=== PATIENT | male | born 1970 | race Asian ===

== ENCOUNTER 2019-11-18 17:46 | Emergency (ER) | payer MEDICAID, SELFPAY ==
[2019-11-18] VITALS (11 sets, daily range): BP systolic 141–177; BP diastolic 75–90; PULSE 91–95; RESP 31–45; TEMP 35.3–36.2; O2SAT 97–100
--- NOTE | 2019-11-18 17:50 | DI.RAD.S_ITS ---
PROCEDURE: XR CHEST 1V INDICATIONS: suspected sepsis TECHNIQUE: One view of the chest was acquired. COMPARISON: None. FINDINGS: Surgical changes and devices: None. Lungs and pleura: Minimal streaky left basilar opacities. Lung volumes are diminished. No pleural effusions or pneumothorax. Mediastinum: Mediastinal contours appear normal. Heart size is normal. Bones and chest wall: No suspicious bony lesions. Overlying soft tissues appear unremarkable. IMPRESSION: Slightly diminished lung volumes with streaky left basilar opacities. Findings favored to represent atelectasis. Developing airspace disease/aspiration not excluded if clinically appropriate. Dictated by: Scooby Jiménez M.D. on 11/18/2019 at 18:48 Approved by: Scooby Jiménez M.D. on 11/18/2019 at 18:49
--- NOTE | 2019-11-18 17:57 | DI.CT.S_ITS ---
PROCEDURE: CT HEAD/BRAIN W CON INDICATIONS: altered TECHNIQUE: 4.5 mm thick angled axial sections acquired from the foramen magnum to the vertex after the administration of intravenous contrast, with coronal and sagittal reformats. For radiation dose reduction, the following was used: automated exposure control, adjustment of mA and/or kV according to patient size. COMPARISON: [facility], CT, CT SOFT TISSUE NECK W CON, 11/18/2019, 18:05. FINDINGS: Image quality: Limited by patient motion artifact. CSF Spaces: Basal cisterns are patent. No extra-axial fluid collections. Ventricles are normal in size and shape. Brain: No midline shift. No intracranial masses. No abnormal intracranial enhancement. Martines-white interface appears normal. Skull and face: Calvarium and visualized facial bones appear intact, without suspicious lesions. There is moderate inflammatory changes/swelling of the posterior subcutaneous soft tissues of the bilateral occipital and left posterior parietal region with overlying skin thickening. There is suggestion of mild edema of the underlying musculature of the skull. No organized fluid collection. Sinuses: Mastoid air cells are clear. Moderate opacification the left maxillary sinus. IMPRESSION: 1. Extensive subcutaneous soft tissue edema/inflammation noted over the posterior bilateral occipital and posterior left parietal regions with associated skin thickening. No organized fluid collection or abscess. Findings likely related to superficial infection/cellulitis versus early phlegmon formation. Suggestion of mild inflammatory changes of the underlying musculature. No underlying osseous erosions. 2. Left maxillary sinus disease. 3. No abnormal intracranial enhancement or suspicious hypodense foci in the brain parenchyma. No intracranial abscess or mass seen. Preliminary findings were already discussed with Dr. Stinson by Dr. Rinaldi. Dictated by: Scooby Jiménez M.D. on 11/18/2019 at 18:49 Approved by: Scooby Jiménez M.D. on 11/18/2019 at 19:07
--- NOTE | 2019-11-18 17:59 | DI.CT.S_ITS ---
PROCEDURE: CT SOFT TISSUE NECK W CON INDICATIONS: abscess to head TECHNIQUE: After the administration of intravenous contrast, 3.0 mm axial sections acquired from the sella to the aortic arch. Additional oblique axial 3.0 mm sections acquired through the pharynx. 3 mm thick coronal and sagittal reformats were generated. For radiation dose reduction, the following was used: automated exposure control. COMPARISON: [facility], CT, CT HEAD/BRAIN W CON, 11/18/2019, 18:05. FINDINGS: Image quality: Degraded by motion artifact. Lymph nodes: No pathologically enlarged lymph nodes seen throughout the neck. Vessels: Visualized vasculature appears patent. Neck spaces: The oropharynx, nasopharynx, and pharynx demonstrate no mucosal lesions. The vocal cords, false vocal cords, pyriform sinuses, epiglottis, vallecula, and tongue base all appear normal. Extramucosal spaces appear unremarkable. Visualized airways are widely patent. Glands: The parotid and submandibular glands appear normal. Thyroid gland is unremarkable as visualized. Miscellaneous: Visualized brain and orbits appear normal. Lung apices appear clear. Extensive superficial subcutaneous soft tissue inflammation/edema identified from the posterior occipital region bilaterally, left posterior parietal region, and extending along the posterior neck to the level of C6-7. There is associated skin thickening. No skin thickening and subcutaneous edema involves the left side of the face and submandibular region. No organized fluid collection identified. There is swelling and heterogeneity involving the muscles which are of the left neck muscles predominantly involving the semispinalis capitis and minimally the trapezius. No organized fluid collection/abscess identified. No evidence for subcutaneous gas. There is minimal anterior prevertebral soft tissue stranding from C2-C4 possibly related to secondary inflammatory changes in the posterior neck. This is relatively homogeneous in attenuation. No organized fluid collection. No osseous erosions. Bones: No suspicious bony lesions. No acute fracture. Multilevel cervical spondylosis. Straightening of cervical lordosis which may be due to patient positioning and/or concurrent muscle spasms. There is moderate opacification of the left maxillary sinus. Remainder of the paranasal sinuses appear clear. Mastoid air cells are well-aerated. IMPRESSION: 1. Extensive subcutaneous soft tissue edema/inflammation involving the posterior neck with associated inflammatory changes/edema of the underlying neck vasculature, predominantly involving the left semispinalis capitis and trapezius muscles. There is associated skin thickening. Findings are likely related to cellulitis although early phlegmon formation of the deeper soft tissues not excluded. No evidence for abscess formation. 2. Minimal, homogeneous stranding of the anterior prevertebral soft tissues from C2-C4 possibly secondary inflammatory changes from the posterior neck. There is no airway compromise associated with this finding. No organized fluid collections in the prevertebral space. 3. Left maxillary sinus disease. 4. Mild skin thickening and subcutaneous inflammatory changes of the left face, also likely related to cellulitis. Findings were already previously discussed with Dr. Stinson of the emergency department by Dr. Rinaldi. Dictated by: Scooby Jiménez M.D. on 11/18/2019 at 19:15 Approved by: Scooby Jiménez M.D. on 11/18/2019 at 19:26
[2019-11-18] MEDS: methylPREDNISolone 125 MG/2 ML VIAL IV ×2 (18:01→18:35)
[2019-11-18] MEDS: PIPERACILLIN-TAZO 4.5 GM/100 ML FROZ.PIGGY IV ×2 (18:01→18:26)
[2019-11-18] MEDS: SODIUM CHLORIDE 0.9% 1,000 ML 1000 ML IV ×2 (18:02→18:26)
[2019-11-18 18:19] LABS: Red Cell Distribution Width 13.4 % (11.6-14.8)
[2019-11-18 18:21] LABS: Prothrombin Time 11.7 SECONDS (10.1-12.7)
[2019-11-18 18:23] LABS: PTT Partial Thromboplastin Tim 32 SECONDS (26.4-36.2)
[2019-11-18 18:24] LABS: Lactate (Lactic Acid) 1.7 mmol/L (0.7-2.1)
[2019-11-18 18:25] LABS: Alanine Aminotransferase 12 IU/L (<50); Albumin 3.9 g/dL (3.5-5.0); Alkaline Phosphatase 181 U/L (38-126); Aspartate Aminotransferase 25 IU/L (17-59); BUN Creatinine Ratio 23.7 (6-22); Bilirubin Total 0.4 mg/dL (0.2-1.3); Blood Urea Nitrogen 45 mg/dL (9-20); Calcium 9.5 mg/dL (8.4-10.2); Chloride 96 mmol/L (98-107); Estimated Glomerular Filt Rate 38.2 mL/min (>60); HEMOLYSIS < 15 (0-50); Potassium 4.4 mmol/L (3.4-5.1); Sodium 128 mmol/L (137-145); Total Protein 7.9 g/dL (6.3-8.2)
[2019-11-18 18:26] LABS: Ketones (Beta-Hydroxybutyrate) 9.52 mmol/L (<0.27)
[2019-11-18 18:27] LABS: Hematocrit 44.2 % (41-53); Hemoglobin 14.3 g/dL (13.5-17.5); Mean Corpuscular HGB Conc 32.3 % (30-36); Mean Corpuscular Hemoglobin 30.2 PG (26-34); Mean Corpuscular Volume 93.5 fL (80-100); Platelet Count 356 X10^3/uL (150-400); Red Blood Cell Count 4.73 X10^6/uL (4.5-5.9)
[2019-11-18 18:30] LABS: Carbon Dioxide < 5 mmol/L (22-32); Glucose 591 mg/dL (70-100)
[2019-11-18 18:31] LABS: Add Manual Diff / Slide Review YES; White Blood Cell Count 37.1 X10^3/uL (4.5-11.0)
[2019-11-18 18:32] LABS: Lipase 2924 U/L (23-300)
--- NOTE | 2019-11-18 18:42 | ED_ITS ---
HPI - Neuro Symptoms/Deficit General Chief Complaint: Neuro Symptoms/Deficit Stated Complaint: Altered Mental Status Time Seen by Provider: 11/18/19 18:13 Source: patient and family Mode of arrival: EMS Limitations: no limitations History of Present Illness HPI Narrative: This is a 49-year-old male who comes to the emergency department with complaint of infection on the back of his neck. Family states it has been there for several days. Patient has not had any fevers. They state today he seemed a little bit confused today but was totally normal yesterday. He has a history of dyslipidemia but they deny any diabetes or other medical history. Patient denies pain. But he does have some naked swelling of the neck and posterior scalp. He has not had any chest pain issues with vomiting or diarrhea. He has not any issues with urination. Patient has prior surgeries. No known allergies. No tobacco, occasional alcohol with no illicit. Related Data Allergies Allergy/AdvReac Type Severity Reaction Status Date / Time No Known Drug Allergies Allergy Verified 11/18/19 18:06 Review of Systems Review of Systems ROS Unobtainable: All systems reviewed & are unremarkable except as noted in HPI and below Patient History Medical History (Updated 11/18/19 @ 22:27 by Venus Stinson DO) Dyslipidemia (Acute) alcohol intake frequency: a few times a month Substance Use Type: does not use Exam Narrative Exam Narrative: GEN: well nourished, male, alert, patient appears to be in moderate distress. Patient answers majority of questions properly he is mildly somnelent but easily arouses. HEENT: Atraumatic patient has extensive swelling the posterior left neck, pupils are equal round reactive to light, extraocular movements are intact, nares are clear, TMs are clear with no fluid. Throat is clear without any exudates, erythema, tonsillar enlargement or uvular deviation, patient has significant swelling of the posterior neck and scalp, patient has appears to be an abscess that is partially open, no active drainage noted. HEART: Regular rate and rhythm without murmur, clicks, rubs. Pulses are equal in upper and lower extremities LUNGS:Lungs clear to auscultation, no wheezes, rales, crackles, chest moves symmetrically ABD:bowel sounds normal, soft, non-tender, no guarding, rebound, rigidity, no masses noted, no hepatosplenomegaly :No CVA tenderness MSCL: Non-tender, no muscle atrophy, muscles strength 5/5 upper and lower extremities, full range of motion, normal gait NEURO:CN 2-12 intact, sensation normal, reflexes 2/4 upper and lower extre mities. finger nose finger test normal, heel cm test normal, romberg normal Initial Vital Signs Initial Vital Signs: Vital Signs Temperature 95.6 F L 11/18/19 18:00 Course Orders Ordered: ED Orders 11/18/19 22:19 Basic Metabolic Panel Stat Discontinued Medications Sodium Chloride (Normal Saline 0.9%) 1,000 mls @ 1,000 mls/hr IV BOLUS ONE Stop: 11/18/19 18:49 Last Infusion: 11/18/19 19:00 Dose: 0 mls/hr Documented by: Admin: 11/18/19 18:02 Dose: 1,000 mls/hr Documented by: RAVINDRA Vancomycin HCl 1,250 mg/ (Sodium Chloride) 250 mls @ 250 mls/hr IV NOW ONE Stop: 11/18/19 17:58 Last Infusion: 11/18/19 20:17 Dose: 0 mls/hr Documented by: Admin: 11/18/19 19:05 Dose: 250 mls/hr Documented by: DEYSI Piperacillin/Tazobactam/Dextrose (Zosyn) 4.5 gm in 100 mls @ 200 mls/hr IV NOW ONE Stop: 11/18/19 18:27 Sodium Chloride (Normal Saline 0.9%) 1,000 mls @ 1,000 mls/hr IV BOLUS ONE Stop: 11/18/19 19:01 Last Infusion: 11/18/19 19:29 Dose: 0 mls/hr Documented by: Admin: 11/18/19 18:26 Dose: 1,000 mls/hr Documented by: DEYSI Piperacillin/Tazobactam/Dextrose (Zosyn) 4.5 gm in 100 mls @ 200 mls/hr IV NOW ONE Stop: 11/18/19 18:48 Last Infusion: 11/18/19 19:00 Dose: 0 mls/hr Documented by: Admin: 11/18/19 18:26 Dose: 200 mls/hr Documented by: DEYSI INSULIN DRIP PREMIX (Myxredlin Drip Premix) 100 unit in 100 mls @ 6 mls/hr IV TITRATE JAH; Protocol Last Titration: 11/18/19 22:13 Dose: 0 mls/hr Documented by: DEYSI Cosigned by: KBRSILVIA Admin: 11/18/19 19:09 Dose: 6 mls/hr Documented by: DEYSI Cosigned by: ESTEE Sodium Bicarbonate 100 meq/ (Dextrose) 1,100 mls @ 150 mls/hr IV CONT JAH Last Admin: 11/18/19 21:20 Dose: Not Given Documented by: DEYSI Potassium Chloride 20 meq/ (Sodium Chloride) 260 mls @ 130 mls/hr IV NOW ONE Stop: 11/18/19 21:59 Last Infusion: 11/18/19 22:17 Dose: 0 mls/hr Documented by: DEYSI Cosigned by: KBRSILVIA Admin: 11/18/19 20:28 Dose: 130 mls/hr Documented by: DEYSI Cosigned by: HGUBERN Lactated Ringer's (Lactated Ringers) 1,000 mls @ 250 mls/hr IV CONT JAH Last Infusion: 11/18/19 22:16 Dose: 0 mls/hr Documented by: Admin: 11/18/19 21:04 Dose: 250 mls/hr Documented by: DEYSI Potassium Chloride 20 meq/ (Sodium Chloride) 260 mls @ 130 mls/hr IV NOW ONE Stop: 11/18/19 23:45 Last Infusion: 11/18/19 22:19 Dose: 130 mls/hr Documented by: DEYSI Cosigned by: KBRSILVIA Admin: 11/18/19 22:11 Dose: 130 mls/hr Documented by: DEYSI Cosigned by: ESTEE Potassium Chloride 40 meq/ (Sodium Chloride) 520 mls @ 130 mls/hr IV NOW ONE Stop: 11/19/19 01:57 Last Admin: 11/18/19 22:20 Dose: Not Given Documented by: DEYSI Insulin Human Regular (Humulin R) 8 unit IV NOW ONE Stop: 11/18/19 18:56 Last Admin: 11/18/19 19:06 Dose: 8 unit Documented by: DEYSI Cosigned by: ESTEE Lidocaine HCl (Urojet) 5 ml TOP NOW ONE Stop: 11/18/19 21:56 Last Admin: 11/18/19 22:10 Dose: 5 ml Documented by: DEYSI Methylprednisolone (Solu-Medrol 125 Mg Vial) 125 mg IV NOW ONE Stop: 11/18/19 17:59 Methylprednisolone (Solu-Medrol 125 Mg Vial) 125 mg IV NOW ONE Stop: 11/18/19 18:33 Last Admin: 11/18/19 18:35 Dose: 125 mg Documented by: JORDEN Morphine Sulfate (Morphine) 4 mg IV NOW ONE Stop: 11/18/19 18:01 Last Admin: 11/18/19 20:31 Dose: Not Given Documented by: DEYSI Vital Signs Vital signs: Vital Signs - 8 hr 11/18/19 18:00 11/18/19 18:06 11/18/19 18:36 Temperature 95.6 F L 95.6 F L 97.1 F L Pulse Rate 93 H 92 H Respiratory Rate 35 H 40 H Blood Pressure 169/88 H Blood Pressure [Right Arm] 160/80 H Pulse Oximetry 100 97 11/18/19 18:57 11/18/19 19:21 11/18/19 19:34 Temperature Pulse Rate 91 H 91 H 92 H Respiratory Rate 45 H 36 H 36 H Blood Pressure Blood Pressure [Right Arm] 141/80 H 148/85 H 151/75 H Pulse Oximetry 100 99 99 11/18/19 19:51 11/18/19 20:15 11/18/19 20:32 Temperature Pulse Rate 92 H 92 H 91 H Respiratory Rate 39 H 33 H 31 H Blood Pressure Blood Pressure [Right Arm] 151/82 H 153/87 H 157/90 H Pulse Oximetry 99 99 100 11/18/19 21:08 11/18/19 21:25 Temperature Pulse Rate 94 H 95 H Respiratory Rate 37 H 35 H Blood Pressure Blood Pressure [Right Arm] 177/90 H 147/80 H Pulse Oximetry 97 98 MDM - Neuro Symptoms/Deficit Lab Data Attestation: I reviewed the patient's lab results. Result diagrams: 11/18/19 17:55 11/18/19 22:19 Labs: Lab Results 11/18/19 11/18/19 11/18/19 Range/Units 17:55 17:55 17:55 WBC 37.1 H* (4.5-11.0) X10^3/uL RBC 4.73 (4.5-5.9) X10^6/uL Hgb 14.3 (13.5-17.5) g/dL Hct 44.2 (41-53) % MCV 93.5 (80-100) fL MCH 30.2 (26-34) PG MCHC 32.3 (30-36) % RDW 13.4 (11.6-14.8) % Plt Count 356 (150-400) X10^3/uL Neut % (Auto) Not Reportable Lymph % (Auto) Not Reportable [place] % (Auto) Not Reportable Eos % (Auto) Not Reportable Baso % (Auto) Not Reportable Lymph # (Auto) Not Reportable [place] # (Auto) Not Reportable Baso # (Auto) Not Reportable Total Counted 100 Seg Neutrophils % 81.0 H (38-70) % Band Neutrophils % 11.0 H (3-7) % Lymphocytes % (Manual) 4.0 L (25-45) % Monocytes % (Manual) 4.0 (2-11) % Neutrophils # (Manual) 78443 H (1627-1228) /uL RBC Morphology Normal morphology ESR (0-15) MM/HR PT 11.7 (10.1-12.7) SECONDS INR 1.0 (0.9-1.3) APTT 32 (26.4-36.2) SECONDS ABG pH (7.35-7.45) ABG pCO2 (35-45) mmHg ABG pO2 (80-100) mmHg ABG HCO3 (22-26) mmol/L ABG Total CO2 (21-31) mmol/L ABG O2 Saturation (95-100) % ABG Base Excess (-2-2) mmol/L FiO2 Sodium (137-145) mmol/L Potassium (3.4-5.1) mmol/L Chloride (98-107) mmol/L Carbon Dioxide (22-32) mmol/L BUN (9-20) mg/dL Creatinine (0.66-1.25) mg/dL Estimated GFR (>60) mL/min BUN/Creatinine Ratio (6-22) Glucose (70-100) mg/dL Lactate (0.7-2.1) mmol/L Calcium (8.4-10.2) mg/dL Phosphorus (2.5-4.5) mg/dL Magnesium (1.6-2.3) mg/dL Total Bilirubin (0.2-1.3) mg/dL AST (17-59) IU/L ALT (<50) IU/L Alkaline Phosphatase (38-126) U/L C-Reactive Protein (<1.0) mg/dL Total Protein (6.3-8.2) g/dL Albumin (3.5-5.0) g/dL Globulin (1.7-4.1) g/dL Albumin/Globulin Ratio (1.0-2.8) Lipase (23-300) U/L Procalcitonin 2.70 H (<0.5) ng/mL Ketones (<0.27) mmol/L 11/18/19 11/18/19 11/18/19 Range/Units 17:55 17:55 17:55 WBC (4.5-11.0) X10^3/uL RBC (4.5-5.9) X10^6/uL Hgb (13.5-17.5) g/dL Hct (41-53) % MCV (80-100) fL MCH (26-34) PG MCHC (30-36) % RDW (11.6-14.8) % Plt Count (150-400) X10^3/uL Neut % (Auto) Lymph % (Auto) [place] % (Auto) Eos % (Auto) Baso % (Auto) Lymph # (Auto) [place] # (Auto) Baso # (Auto) Total Counted Seg Neutrophils % (38-70) % Band Neutrophils % (3-7) % Lymphocytes % (Manual) (25-45) % Monocytes % (Manual) (2-11) % Neutrophils # (Manual) (4016-9983) /uL RBC Morphology ESR (0-15) MM/HR PT (10.1-12.7) SECONDS INR (0.9-1.3) APTT (26.4-36.2) SECONDS ABG pH (7.35-7.45) ABG pCO2 (35-45) mmHg ABG pO2 (80-100) mmHg ABG HCO3 (22-26) mmol/L ABG Total CO2 (21-31) mmol/L ABG O2 Saturation (95-100) % ABG Base Excess (-2-2) mmol/L FiO2 Sodium 128 L (137-145) mmol/L Potassium 4.4 (3.4-5.1) mmol/L Chloride 96 L (98-107) mmol/L Carbon Dioxide < 5 L* (22-32) mmol/L BUN 45 H (9-20) mg/dL Creatinine 1.90 H (0.66-1.25) mg/dL Estimated GFR 38.2 L (>60) mL/min BUN/Creatinine Ratio 23.7 H (6-22) Glucose 591 H* (70-100) mg/dL Lactate 1.7 (0.7-2.1) mmol/L Calcium 9.5 (8.4-10.2) mg/dL Phosphorus (2.5-4.5) mg/dL Magnesium (1.6-2.3) mg/dL Total Bilirubin 0.4 (0.2-1.3) mg/dL AST 25 (17-59) IU/L ALT 12 (<50) IU/L Alkaline Phosphatase 181 H (38-126) U/L C-Reactive Protein (<1.0) mg/dL Total Protein 7.9 (6.3-8.2) g/dL Albumin 3.9 (3.5-5.0) g/dL Globulin 4.0 (1.7-4.1) g/dL Albumin/Globulin Ratio 1.0 (1.0-2.8) Lipase 2924 H (23-300) U/L Procalcitonin (<0.5) ng/mL Ketones 9.52 H (<0.27) mmol/L 11/18/19 11/18/19 11/18/19 Range/Units 17:55 17:55 17:58 WBC (4.5-11.0) X10^3/uL RBC (4.5-5.9) X10^6/uL Hgb (13.5-17.5) g/dL Hct (41-53) % MCV (80-100) fL MCH (26-34) PG MCHC (30-36) % RDW (11.6-14.8) % Plt Count (150-400) X10^3/uL Neut % (Auto) Lymph % (Auto) [place] % (Auto) Eos % (Auto) Baso % (Auto) Lymph # (Auto) [place] # (Auto) Baso # (Auto) Total Counted Seg Neutrophils % (38-70) % Band Neutrophils % (3-7) % Lymphocytes % (Manual) (25-45) % Monocytes % (Manual) (2-11) % Neutrophils # (Manual) (0725-2874) /uL RBC Morphology ESR 49 H (0-15) MM/HR PT (10.1-12.7) SECONDS INR (0.9-1.3) APTT (26.4-36.2) SECONDS ABG pH (7.35-7.45) ABG pCO2 (35-45) mmHg ABG pO2 (80-100) mmHg ABG HCO3 (22-26) mmol/L ABG Total CO2 (21-31) mmol/L ABG O2 Saturation (95-100) % ABG Base Excess (-2-2) mmol/L FiO2 Sodium (137-145) mmol/L Potassium (3.4-5.1) mmol/L Chloride (98-107) mmol/L Carbon Dioxide (22-32) mmol/L BUN (9-20) mg/dL Creatinine (0.66-1.25) mg/dL Estimated GFR (>60) mL/min BUN/Creatinine Ratio (6-22) Glucose (70-100) mg/dL Lactate (0.7-2.1) mmol/L Calcium (8.4-10.2) mg/dL Phosphorus 5.2 H (2.5-4.5) mg/dL Magnesium 3.3 H (1.6-2.3) mg/dL Total Bilirubin (0.2-1.3) mg/dL AST (17-59) IU/L ALT (<50) IU/L Alkaline Phosphatase (38-126) U/L C-Reactive Protein 36.6 H (<1.0) mg/dL Total Protein (6.3-8.2) g/dL Albumin (3.5-5.0) g/dL Globulin (1.7-4.1) g/dL Albumin/Globulin Ratio (1.0-2.8) Lipase (23-300) U/L Procalcitonin (<0.5) ng/mL Ketones (<0.27) mmol/L 11/18/19 11/18/19 11/18/19 Range/Units 18:42 20:06 20:38 WBC (4.5-11.0) X10^3/uL RBC (4.5-5.9) X10^6/uL Hgb (13.5-17.5) g/dL Hct (41-53) % MCV (80-100) fL MCH (26-34) PG MCHC (30-36) % RDW (11.6-14.8) % Plt Count (150-400) X10^3/uL Neut % (Auto) Lymph % (Auto) [place] % (Auto) Eos % (Auto) Baso % (Auto) Lymph # (Auto) [place] # (Auto) Baso # (Auto) Total Counted Seg Neutrophils % (38-70) % Band Neutrophils % (3-7) % Lymphocytes % (Manual) (25-45) % Monocytes % (Manual) (2-11) % Neutrophils # (Manual) (5628-3243) /uL RBC Morphology ESR (0-15) MM/HR PT (10.1-12.7) SECONDS INR (0.9-1.3) APTT (26.4-36.2) SECONDS ABG pH 6.97 L* 6.95 L* (7.35-7.45) ABG pCO2 13.2 L* 11.8 L* (35-45) mmHg ABG pO2 136 H 121 H (80-100) mmHg ABG HCO3 3 L 3 L (22-26) mmol/L ABG Total CO2 < 5 L < 5 L (21-31) mmol/L ABG O2 Saturation 97 95 (95-100) % ABG Base Excess -29.0 L -30.0 L (-2-2) mmol/L FiO2 0.21 21 Sodium 133 L (137-145) mmol/L Potassium 3.7 (3.4-5.1) mmol/L Chloride 102 (98-107) mmol/L Carbon Dioxide 5 L* (22-32) mmol/L BUN 42 H (9-20) mg/dL Creatinine 1.70 H (0.66-1.25) mg/dL Estimated GFR 43.4 L (>60) mL/min BUN/Creatinine Ratio 24.7 H (6-22) Glucose 465 H D (70-100) mg/dL Lactate (0.7-2.1) mmol/L Calcium 8.9 (8.4-10.2) mg/dL Phosphorus (2.5-4.5) mg/dL Magnesium (1.6-2.3) mg/dL Total Bilirubin (0.2-1.3) mg/dL AST (17-59) IU/L ALT (<50) IU/L Alkaline Phosphatase (38-126) U/L C-Reactive Protein (<1.0) mg/dL Total Protein (6.3-8.2) g/dL Albumin (3.5-5.0) g/dL Globulin (1.7-4.1) g/dL Albumin/Globulin Ratio (1.0-2.8) Lipase (23-300) U/L Procalcitonin (<0.5) ng/mL Ketones (<0.27) mmol/L 11/18/19 Range/Units 22:19 WBC (4.5-11.0) X10^3/uL RBC (4.5-5.9) X10^6/uL Hgb (13.5-17.5) g/dL Hct (41-53) % MCV (80-100) fL MCH (26-34) PG MCHC (30-36) % RDW (11.6-14.8) % Plt Count (150-400) X10^3/uL Neut % (Auto) Lymph % (Auto) [place] % (Auto) Eos % (Auto) Baso % (Auto) Lymph # (Auto) [place] # (Auto) Baso # (Auto) Total Counted Seg Neutrophils % (38-70) % Band Neutrophils % (3-7) % Lymphocytes % (Manual) (25-45) % Monocytes % (Manual) (2-11) % Neutrophils # (Manual) (6761-7535) /uL RBC Morphology ESR (0-15) MM/HR PT (10.1-12.7) SECONDS INR (0.9-1.3) APTT (26.4-36.2) SECONDS ABG pH (7.35-7.45) ABG pCO2 (35-45) mmHg ABG pO2 (80-100) mmHg ABG HCO3 (22-26) mmol/L ABG Total CO2 (21-31) mmol/L ABG O2 Saturation (95-100) % ABG Base Excess (-2-2) mmol/L FiO2 Sodium 135 L (137-145) mmol/L Potassium 3.4 (3.4-5.1) mmol/L Chloride 105 (98-107) mmol/L Carbon Dioxide 7 L* (22-32) mmol/L BUN 43 H (9-20) mg/dL Creatinine 1.50 H (0.66-1.25) mg/dL Estimated GFR 50.2 L (>60) mL/min BUN/Creatinine Ratio 28.7 H (6-22) Glucose 362 H D (70-100) mg/dL Lactate (0.7-2.1) mmol/L Calcium 8.9 (8.4-10.2) mg/dL Phosphorus (2.5-4.5) mg/dL Magnesium (1.6-2.3) mg/dL Total Bilirubin (0.2-1.3) mg/dL AST (17-59) IU/L ALT (<50) IU/L Alkaline Phosphatase (38-126) U/L C-Reactive Protein (<1.0) mg/dL Total Protein (6.3-8.2) g/dL Albumin (3.5-5.0) g/dL Globulin (1.7-4.1) g/dL Albumin/Globulin Ratio (1.0-2.8) Lipase (23-300) U/L Procalcitonin (<0.5) ng/mL Ketones (<0.27) mmol/L Point of Care Testing Glucose POC [address] scan - head: Radiologist's Impression: GregoryHarry 49 M 1970 [place] [address] CT Scan Report Signed Patient: Florentin Gregory#: [id number] : 1970Acct:[id number] Age/Sex: 49 / MDate of Service: 11/18/19 Loc: ED Accession Number: [id number] Procedure: CT head/brain w con Ordering Provider: Armando Wylie MD PROCEDURE: CT HEAD/BRAIN W CON INDICATIONS: altered TECHNIQUE: 4.5 mm thick angled axial sections acquired from the foramen magnum to the vertex after the administration of intravenous contrast, with coronal and sagittal reformats. For radiation dose reduction, the following was used: automated exposure control, adjustment of mA and/or kV according to patient size. COMPARISON: [facility], CT, CT SOFT TISSUE NECK W CON, 11/18/2019, 18:05. FINDINGS: Image quality: Limited by patient motion artifact. CSF Spaces: Basal cisterns are patent. No extra-axial fluid collections. Ventricles are normal in size and shape. Brain: No midline shift. No intracranial masses. No abnormal intracranial enhancement. Martines-white interface appears normal. Skull and face: Calvarium and visualized facial bones appear intact, without suspicious lesions. There is moderate inflammatory changes/swelling of the posterior subcutaneous soft tissues of the bilateral occipital and left posterior parietal region with overlying skin thickening. There is suggestion of mild edema of the underlying musculature of the skull. No organized fluid collection. Sinuses: Mastoid air cells are clear. Moderate opacification the left maxillary sinus. IMPRESSION: 1. Extensive subcutaneous soft tissue edema/inflammation noted over the posterior bilateral occipital and posterior left parietal regions with associated skin thickening. No organized fluid collection or abscess. Findings likely related to superficial infection/cellulitis versus early phlegmon formation. Suggestion of mild inflammatory changes of the underlying musculature. No underlying osseous erosions. 2. Left maxillary sinus disease. 3. No abnormal intracranial enhancement or suspicious hypodense foci in the brain parenchyma. No intracranial abscess or mass seen. Preliminary findings were already discussed with Dr. Stinson by Dr. Rinaldi. Dictated by: Scooby Jiménez M.D. on 11/18/2019 at 18:49 Approved by: Scooby Jiménez M.D. on 11/18/2019 at 19:07 CT soft tissue neck: Radiologist's Impression: Harry Gregory M 1970 [place] [address] CT Scan Report Signed Patient: Florentin Gregory#: [id number] : 1970Acct:[id number] Age/Sex: 49 / MDate of Service: 11/18/19 Loc: ED Accession Number: [id number] Procedure: CT soft tissue neck w con Ordering Provider: Armando Wylie MD PROCEDURE: CT SOFT TISSUE NECK W CON INDICATIONS: abscess to head TECHNIQUE: After the administration of intravenous contrast, 3.0 mm axial sections acquired from the sella to the aortic arch. Additional oblique axial 3.0 mm sections acquired through the pharynx. 3 mm thick coronal and sagittal reformats were generated. For radiation dose reduction, the following was used: automated exposure control. COMPARISON: [facility], CT, CT HEAD/BRAIN W CON, 11/18/2019, 18:05. FINDINGS: Image quality: Degraded by motion artifact. Lymph nodes: No pathologically enlarged lymph nodes seen throughout the neck. Vessels: Visualized vasculature appears patent. Neck spaces: The oropharynx, nasopharynx, and pharynx demonstrate no mucosal lesions. The vocal cords, false vocal cords, pyriform sinuses, epiglottis, vallecula, and tongue base all appear normal. Extramucosal spaces appear unremarkable. Visualized airways are widely patent. Glands: The parotid and submandibular glands appear normal. Thyroid gland is unremarkable as visualized. Miscellaneous: Visualized brain and orbits appear normal. Lung apices appear clear. Extensive superficial subcutaneous soft tissue inflammation/edema identified from the posterior occipital region bilaterally, left posterior parietal region, and extending along the posterior neck to the level of C6-7. There is associated skin thickening. No skin thickening and subcutaneous edema involves the left side of the face and submandibular region. No organized fluid collection identified. There is swelling and heterogeneity involving the muscles which are of the left neck muscles predominantly involving the semispinalis capitis and minimally the trapezius. No organized fluid collection/abscess identified. No evidence for subcutaneous gas. There is minimal anterior prevertebral soft tissue stranding from C2-C4 possibly related to secondary inflammatory changes in the posterior neck. This is relatively homogeneous in attenuation. No organized fluid collection. No osseous erosions. Bones: No suspicious bony lesions. No acute fracture. Multilevel cervical spondylosis. Straightening of cervical lordosis which may be due to patient positioning and/or concurrent muscle spasms. There is moderate opacification of the left maxillary sinus. Remainder of the paranasal sinuses appear clear. Mastoid air cells are well-aerated. IMPRESSION: 1. Extensive subcutaneous soft tissue edema/inflammation involving the posterior neck with associated inflammatory changes/edema of the underlying neck vasculature, predominantly involving the left semispinalis capitis and trapezius muscles. There is associated skin thickening. Findings are likely related to cellulitis although early phlegmon formation of the deeper soft tissues not excluded. No evidence for abscess formation. 2. Minimal, homogeneous stranding of the anterior prevertebral soft tissues from C2-C4 possibly secondary inflammatory changes from the posterior neck. There is no airway compromise associated with this finding. No organized fluid collections in the prevertebral space. 3. Left maxillary sinus disease. 4. Mild skin thickening and subcutaneous inflammatory changes of the left face, also likely related to cellulitis. Findings were already previously discussed with Dr. Stinson of the emergency department by Dr. Rinaldi. Dictated by: Scooby Jiménez M.D. on 11/18/2019 at 19:15 Approved by: Scooby Jiménez M.D. on 11/18/2019 at 19:26 ECG Data Attestation: I personally reviewed and interpreted this ECG as follows: Interpretation: This is a sinus rhythm rate of 93 WI 187 QRS of 126 and QTC 454. Patient has Q-waves in [address] elevation[address] [facility] Narrative Medical decision making narrative: Patient comes in with complaint of some new confusion and infection on the back of his neck. He appears to have a developing abscess in the posterior scalp with significant swelling of the back of the scalp and neck into the trapezius and some a kappa talus area. There is no organized fluid or abscess collection in that area no subcutaneous gas in the lower neck but small amount the posterior scalp. There is some very minimal anterior prevertebral soft tissue stranding at C2-C4. Patient does not appear to have any retropharyngeal abscess. Patient also appears to be in DKA as well as sepsis. He has not had prior diagnosis of diabetes. He does have a history of dyslipidemia according to him and his sister. Patient is quite acidotic 6.96 with a CO2 of 13, O2 136 and a bicarb of 3. On his labs his anion gap is 27. He has a CO2 less than 5. And glucose was in the 500 range. Patient also has a white count that is 37 with a lactate of 1.7. Darren was elevated 5.2 and Mag of 3.3. Patient's lipase was 29 twenty-four and procalcitonin of 2.7. I suspect his lipase is secondary to his DKA. He does not complaint of abdominal pain at this time. Patient has had slightly decreased mentation but has been able to answer questions, he does appear to be protecting his airway and does not have any impingement his CT of the neck his airway. Patient was given Zosyn and vancomycin, he has received 3 L of normal saline initially with resuscitation started on insulin drip with bolus. Patient also started on potassium IV. I spoke with Dr. Nirmal López from ENT and he felt this patient would be best served through [facility]. At this time I am hesitant to intubate the patient as he will likely have a decrease in his respiratory drive and become more acidotic and he is at high risk for cardiac arrest at this time. [place] and [place] were also contacted as [facility] was initially unsure if they had beds available for patient. I spoke with Medicine through [facility] Emergency Department, Dr. Castaneda who asked that we continue with LR 250 per hour, insulin and continuous potassium infusion patient. She does not feel should have a bicarb at this time. Patient has had multiple re-evaluations for mental status and airway protection throughout his stay. Patient and his family is also aware that he is high risk for cardiac arrest and may still need to be intubated. Repeat potassium was 3.7, there was delay in getting Krider and it was hung after that lab repeat. CO2 is up to 5 from less than 5. And glucose was 465 from 591. Repeat ABG is 6.946 with a CO2 of 11, O2 121 and bicarb of 2.6. Airlift arrived for transportation. Patient being transported. lytes were repeated and they asked if less than 3.4 potassium to contact airlift to update so that they can stop insulin gtt. Patient K is 3.4, [facility] contacted to update that is is 3.4. Critical Care Time Critical Care Time Critical Care Time: Yes Total Critical Care Time: 240 Attestation: The high probability of a clinically significant, sudden or life threatening deterioration of the [cardiac, respiratory, neurologic] system(s) required my full and direct attention, intervention and personal management. The aggregate critical care time was [240] minutes. This time is in addition to time spent performing reported procedures but includes the following: [x] Data Review and interpretation xPatient assessment and monitoring of vital signs [x] Documentation [x] Medication orders and management Discharge Plan Departure Patient Disposition: [facility] Clinical Impression: Abscess or cellulitis of scalp, Cellulitis of neck, DKA (diabetic ketoacidoses) Discharge Date/Time: 11/18/19 22:29
[2019-11-18 18:43] LABS: Neutrophils Absolute Manual 34132 /uL (3000-5900); Total Cells Counted 100
[2019-11-18 18:44] LABS: RBC Morphology Normal Morphology
[2019-11-18] MEDS: VANCOMYCIN 1,250 MG in SODIUM CHLORIDE 0.9% 250 ML IV (19:05)
[2019-11-18] MEDS: INSULIN REGULAR 100 UNIT/ML 3 ML VIAL 8 UNIT IV (19:06)
[2019-11-18] MEDS: INSULIN DRIP PREMIX 100 UNIT/100 ML PLAST..BAG 6 UNIT IV (19:09)
[2019-11-18 19:19] LABS: Magnesium 3.3 mg/dL (1.6-2.3); Phosphorous 5.2 mg/dL (2.5-4.5)
[2019-11-18 20:00] LABS: Erythrocyte Sedimentation Rate 49 MM/HR (0-15)
[2019-11-18 20:19] LABS: C-Reactive Protein Quant 36.6 mg/dL (<1.0)
[2019-11-18 20:21] LABS: PCO2 ABG 13.2 mmHg (35-45); pH ABG 6.97 (7.35-7.45)
[2019-11-18 20:22] LABS: HCO3 ABG 3 mmol/L (22-26); PO2 ABG 136 mmHg (80-100); TCO2 ABG < 5 mmol/L (21-31)
[2019-11-18 20:23] LABS: Oxygen Saturation ABG 97 % (95-100)
[2019-11-18 20:23] LABS: BUN Creatinine Ratio 24.7 (6-22); Blood Urea Nitrogen 42 mg/dL (9-20); Calcium 8.9 mg/dL (8.4-10.2); Chloride 102 mmol/L (98-107); Estimated Glomerular Filt Rate 43.4 mL/min (>60); Glucose 465 mg/dL (70-100); HEMOLYSIS < 15 (0-50); Potassium 3.7 mmol/L (3.4-5.1); Sodium 133 mmol/L (137-145)
[2019-11-18 20:24] LABS: Carbon Dioxide 5 mmol/L (22-32)
[2019-11-18 20:25] LABS: Fractionated Inspired Oxygen 0.21
[2019-11-18] MEDS: POTASSIUM CHLORIDE 20 MEQ in SODIUM CHLORIDE 0.9% 250 ML 130 ML IV ×2 (20:28→22:11)
--- NOTE | 2019-11-18 20:33 | PC.NURSE ---
pt resting with eyes closed at this time, +responds to voice
[2019-11-18] MEDS: LACTATED RINGERS 1,000 ML 250 ML IV (21:04)
[2019-11-18 21:32] LABS: PCO2 ABG 11.8 mmHg (35-45); pH ABG 6.95 (7.35-7.45)
[2019-11-18 21:33] LABS: Fractionated Inspired Oxygen 21; HCO3 ABG 3 mmol/L (22-26); Oxygen Saturation ABG 95 % (95-100); PO2 ABG 121 mmHg (80-100); TCO2 ABG < 5 mmol/L (21-31)
[2019-11-18] MEDS: LIDOCAINE 2% (UROJET) 5 ML GEL TOP (22:10)
--- NOTE | 2019-11-18 22:21 | PC.NURSE ---
pt transported with Lactated ringers, KCL and insulin drip running on transport
[2019-11-18 22:38] LABS: BUN Creatinine Ratio 28.7 (6-22); Blood Urea Nitrogen 43 mg/dL (9-20); Calcium 8.9 mg/dL (8.4-10.2); Chloride 105 mmol/L (98-107); Estimated Glomerular Filt Rate 50.2 mL/min (>60); Glucose 362 mg/dL (70-100); HEMOLYSIS < 15 (0-50); Potassium 3.4 mmol/L (3.4-5.1); Sodium 135 mmol/L (137-145)
[2019-11-18 22:40] LABS: Carbon Dioxide 7 mmol/L (22-32)
[2019-11-19 09:20] LABS: Acinetobacter baumannii Not Detected (Not Detect); Candida albicans Not Detected (Not Detect); Candida glabrata Not Detected (Not Detect); Candida krusei Not Detected (Not Detect); Candida parapsilosis Not Detected (Not Detect); Candida tropicalis Not Detected (Not Detect); E. coli Not Detected (Not Detect); Enterobacter cloacae complex Not Detected (Not Detect); Enterobacteriaceae species Not Detected (Not Detect); Enterococcus species Not Detected (Not Detect); Haemophilus influenzae Not Detected (Not Detect); Listeria monocytogenes Not Detected (Not Detect); Methicillin-resistant gene Not Detected (Not Detect); Neisseria meningitidis Not Detected (Not Detect); Proteus species Not Detected (Not Detect); Pseudomonas aeruginosa Not Detected (Not Detect); Serratia marcescens Not Detected (Not Detect); Staphylococcus species Detected (Not Detect); Streptococcus agalactiae (Gr B Not Detected (Not Detect); Streptococcus pneumonia Not Detected (Not Detect); Streptococcus pyogenes (Gr A) Not Detected (Not Detect); Streptococcus species Not Detected (Not Detect)
== END 2019-11-18 22:29 | disposition short-term general hospital (02) ==
PROVIDERS: Emergency Medicine; Nurse Practitioner; Emergency Provider Emergency Medicine
DX: E11.10 Type 2 diabetes mellitus with ketoacidosis without coma (principal); L02.811 Cutaneous abscess of head [any part, except face]; L03.221 Cellulitis of neck; L03.811 Cellulitis of head [any part, except face]; E78.5 Hyperlipidemia, unspecified; R41.82 Altered mental status, unspecified
CPT/HCPCS: 36415; 36600; 51701; 70460; 70491; 71045; 80048; 80053; 82009; 82805; 82962; 83605; 83690; 83735; 84100; 84145; 85025; 85610; 85651; 85730; 86140; 87040; 87150; 87186; 87205; 93005; 96365; 96366; 96367; 96368; 96375; 99285; 99291; 99292; J2543; J2930; J3480